=== PATIENT | male | born 1940 | race Caucasian/White ===

== ENCOUNTER → 2016-11-27 | Outpatient (CLI) | payer MEDICARE, OTHER ==
[~2016-11-27] MED LIST: ASP81CT PO; CLOB15CR3 TP; DILT120C PO; DILT180C PO; FURO40TA4 PO; GARL200T PO; KCL20TCR PO; METO50TA7 PO; NIA500ERT PO; NIFE60TA78 PO; OMEG-59 PO; PRV20T PO; ROSU10TA12 PO; SIMV20TA3 PO; TML.25OP OP; WRF5T PO; [UNRECOGNIZED DRUG - CODE] PO
== END ==
LOC: CARD 08:30
PROVIDERS: ATTEND Internal Medicine Cardiovascular Disease
DX: I11.0 Hypertensive heart disease with heart failure (principal); I50.22 Chronic systolic (congestive) heart failure; E78.2 Mixed hyperlipidemia; I48.0 Paroxysmal atrial fibrillation
CPT/HCPCS: 93306

== ENCOUNTER → 2018-11-16 | Outpatient (CLI) | payer MEDICARE, OTHER ==
[~2018-11-16] MED LIST changes: +REGADENOSON 0.4 MG/5 ML SYR (LEXISCAN) IV ONE
[2018-11-16] MEDS: CATHETER FLUSH 10 ML SYR IV PRN ×2 (11:36→13:10)
[2018-11-16 13:07] VITALS: BP 144/77
--- NOTE | 2018-11-16 21:21 | STRESS TEST ---
DATE OF SERVICE: 11/16/2018 LEXISCAN MYOVIEW STRESS TEST REFERRING PHYSICIAN: Dr. Belkis Babb. Baseline heart rate is 68. Baseline blood pressure is 142/82. Baseline EKG is sinus rhythm with no ischemic changes. In summary, the patient was injected with 10.92 mCi of technetium-99 Myoview and the resting images were obtained. Then, the patient received 0.4 mg of Lexiscan followed by 29.7 mCi of technetium-99 Myoview. Throughout the test, there were no EKG changes. The resting and stress images were reviewed and compared in the short axis, horizontal long axis, and vertical long axis views. Review of the images showed good radiotracer uptake with no ischemia or infarction. SSS is 2, SDS 2, TID value 0.84. On the gated images, the left ventricle appeared to be normal size with normal contractility. Calculated ejection fraction 62%. CONCLUSION: 1. The patient tolerated Lexiscan well. 2. No ischemia or infarction on SPECT images. 3. Normal left ventricular size with normal contractility. Calculated ejection fraction 62%. Job ID: [id number] DocumentID: [id number] Dictated Date: 11/16/2018 15:57:02 [employer] Date: 11/16/2018 21:20:49 Dictated By: MAYTE QUEEN MD
== END ==
LOC: CARD 11:23
PROVIDERS: ATTEND Internal Medicine Cardiovascular Disease
DX: I27.0 Primary pulmonary hypertension (principal); E78.5 Hyperlipidemia, unspecified; I11.0 Hypertensive heart disease with heart failure; I50.9 Heart failure, unspecified
CPT/HCPCS: 78452; 93017; 93306

== ENCOUNTER 2018-12-14 07:08 | Day surgery (SDC) | payer MEDICARE, OTHER ==
[2018-12-14] VITALS (13 sets, daily range): BP systolic 119–164; BP diastolic 61–87
[~2018-12-14] VITALS: Ht 180.3 cm; Wt 56.0 kg
[~2018-12-14 07:08] MED LIST changes: -REGADENOSON 0.4 MG/5 ML SYR (LEXISCAN) IV ONE
[2018-12-14] MEDS ORDERED: NS IV 1000 ML 1,000 ML IV SCH (07:27)
[2018-12-14] MEDS ORDERED: LIDOCAINE 2% VISCOUS 15 ML UDC PO ONE (07:30)
[2018-12-14] MEDS ORDERED: LIDOCAINE 2% VISCOUS 15 ML UDC ONE (07:32)
[2018-12-14] MEDS ORDERED: NS IV 1000 ML 1,000 ML ONE (07:32)
[2018-12-14 07:57] LABS: HEMOGLOBIN 13.2 G/DL (13.3-17.7); MEAN PLATELET VOLUME 11.3 FL (7.4-10.4); RED CELL DISTRIBUTION WIDTH 14.9 % (10.0-14.5)
[2018-12-14] MEDS ORDERED: MIDAZOLAM 2 MG/2 ML (VERSED) VIAL ONE (07:59)
[2018-12-14] MEDS ORDERED: proPOfol 200 MG/20 ML (DIPRIVAN) VIAL IV ONE (07:59)
[2018-12-14] MEDS ORDERED: DILT240C53 PO (08:00)
[2018-12-14] MEDS ORDERED: ATOR40TA PO (08:04)
[2018-12-14] MEDS ORDERED: POTA20TA8 PO (08:04)
[2018-12-14] MEDS ORDERED: METO-395 PO (08:04)
[2018-12-14] MEDS ORDERED: APIX5TAB PO (08:04)
[2018-12-14] MEDS ORDERED: AMIO200T4 PO (08:04)
[2018-12-14] MEDS ORDERED: FURO40TA4 PO (08:04)
[2018-12-14] MEDS ORDERED: LISI10TA2 PO (08:04)
[2018-12-14] MEDS ORDERED: LEVO112T55 PO (08:06)
[2018-12-14] MEDS ORDERED: OMEG-82 PO (08:06)
[2018-12-14] MEDS ORDERED: TIMO5DRO5 OU (08:06)
[2018-12-14] MEDS ORDERED: GARL200T PO (08:07)
[2018-12-14 08:09] LABS: INR 1.2 (0.8-1.4); PROTHROMBIN TIME PATIENT 15.9 SEC (12.2-14.7)
[2018-12-14] MEDS ORDERED: FLU QUADRIvalent (5+ YOA) 2019-2020 (AFLURIA) 0.5 ML IM ONE (08:15)
[2018-12-14 08:16] LABS: ALBUMIN 4.4 GM/DL (3.2-4.5); CALCIUM 9.5 MG/DL (8.5-10.1); CREATININE SERUM 1.38 MG/DL (0.60-1.30); POTASSIUM 4.2 MMOL/L (3.6-5.0)
--- NOTE | 2018-12-14 08:25 | Diagnostic Imaging Report ---
INDICATION: Pre transesophageal echo. Time of exam 7:41 AM Correlation is made with prior chest from 02/15/2013. Heart is enlarged. There is calcified granuloma right midlung. There is some basilar scarring. No infiltrates are seen. No effusion or pneumothorax is identified. IMPRESSION: No acute cardiopulmonary process is detected. Dictated by: Dictated on workstation # [id number]
--- NOTE | 2018-12-14 08:55 | NUR ---
SPOKE WITH THE PT ( HE HAD A MED LIST) WELL CALLING [employer] AND [facility] TO COMPLETE THE MED REC. THE PT WAS ABLE TO TELL ME HOW/WHEN HE TAKES ALL HIS MEDS. THE FOLLOWING ARE FILL DATES FROM HIS PHARMACIES: 10-19-2018 POTASSIUM #90/90DS 10-19-2018 CARTIA #90/90DS 10-19-2018 FUROSEMIDE #90/90DS 11-14-2018 AMIODARONE #180 11-15-2018 LEVOTHYROXINE #90/90DS 11-17-2018 METOPROLOL #90/90DS 12-02-2018 TIMOLOL 12-06-2018 ATORVASTATIN #90/90DS 12-06-2018 LISINOPRIL #90/90DS OTC MEDS: GARLIC FISH OIL
--- NOTE | 2018-12-14 09:05 | Cardiac Procedure Note-CS/ASA ---
Pre-Procedure Note Pre-Op Procedure Note H&P Reviewed The H&P was reviewed, patient examined and no changes noted. Date H&P Reviewed: Dec 14, 2018 Time H&P Reviewed: 09:05 Conscious Sedation Pre-Proced Time 09:05 ASA Score 3 For ASA 3 and 4: Consider anesthesia and medical clearance. Also, for patients with a history of failed moderate sedation consider anesthesia. Airway Lungs Heart ASA score ASA 1: a normal healthy patient ASA 2: a patient with a mild systemic disease (mid diabetes, controlled hypertension, obesity x ASA 3: a patient with a severe systemic disease that limits activity (angina, COPD, prior Myocardial infarction) ASA 4: a patient with an incapacitating disease that is a constant threat to life (CHF, renal failure) ASA 5: a moribund patient not expected to survive 24 hrs. (ruptured aneurysm) ASA 6: a declared brain- patient whose organs are being harvested. For emergent operations, add the letter E after the classification Mallampati Classification Grade 3 Sedation Plan Analgesia, Amnesia, Plan communicated to team members, Discussed options with patient/fam, Discussed risks with patient/fam The patient is an appropriate candidate to undergo the planned procedure, sedation, and anesthesia. The patient immediately re-assessed prior to indication. MAYTE QUEEN MD Dec 14, 2018 09:05
--- NOTE | 2018-12-14 09:29 | Cardioversion ---
Cardioversion PROCEDURE PHYSICIAN: Mayte Villeda DATE OF PROCEDURE: 12/14/18 DIRECT EXTERNAL ELECTRICAL CARDIOVERSION: Indications: Atrial Fibrillation with rapid ventricular rate Preoperative diagnoses: Atrial Fibrillation with rapid ventricular rate Postoperative diagnosis: Sinus rhythm, Successful Electrical Cardioversion History: 78 years old gentleman with paroxysmal atrial fibrillation, has been on amiodarone drip, scheduled for ZHEN with electrical cardioversion Anesthesia: By Anesthesia services Complications: None Specimen: None Contrast: 0 Flouroscopy: none Procedure Details: The patient was brought the labor employment associate after informed consent was taken, all the risks and complications were explained including the risk of stroke. Electrical cardioversion was carried out with anesthesia support with propofol. 200 joules of synchronized shock was delivered through external patches which promptly restored sinus rhythm. The patient tolerated the procedure well. Conclusions: Successful electrical cardioversion in terminating atrial fibrillation Final Diagnosis: Paroxysmal atrial fibrillation Palpitation Hypertension Hyperlipidemia MAYTE VILLEDA MD Dec 14, 2018 09:28
--- NOTE | 2018-12-14 09:35 | Anesthesia-Procedure Note ---
Procedures/Interventions Procedure Start/Stop/Diagnosis Date of Procedure: Dec 14, 2018 Start Time: 09:14 Referring Physician: christy Stop Time: 09:25 ZHEN/Cardioversion Anesthesia Type: MAC ASA Class: 3 Medications Versed 1mg, Propofol 80mg Monitors and Equipment: BP Cuff - Left, Continuous EKG, End Tidal CO2, IV, Pulse Oximeter READING,ELINA Hyatt CRNA Dec 14, 2018 09:35
== END 2018-12-14 11:50 | disposition home or self-care (01) ==
LOC: CATH 07:08 → SDC 10:21 → CATH 11:50
PROVIDERS: ATTEND Internal Medicine Cardiovascular Disease
DX: I48.0 Paroxysmal atrial fibrillation (principal); I11.0 Hypertensive heart disease with heart failure; I50.9 Heart failure, unspecified; E78.5 Hyperlipidemia, unspecified; I27.20 Pulmonary hypertension, unspecified; E03.9 Hypothyroidism, unspecified; Z79.899 Other long term (current) drug therapy; Z87.891 Personal history of nicotine dependence; Z79.01 Long term (current) use of anticoagulants; Z82.49 Family history of ischemic heart disease and other diseases of the circulatory system
CPT/HCPCS: 36415; 71045; 80053; 80061; 85027; 85610; 85730; 87081; 92960; 93005; 93312; 93320; 93325

== ENCOUNTER → 2020-01-03 | Outpatient (CLI) | payer MEDICARE, OTHER ==
[~2020-01-03] MED LIST changes: +AMIO200T6 PO; +APIX5TAB PO; +ATOR40TA PO; +DILT240C53 PO; +LEVO112T55 PO; +LISI10TA2 PO; +MTP100TCR PO; +OMEG-82 PO; +POTA20TA8 PO; +TIMO5DRO5 OU
--- NOTE | 2020-01-03 08:36 | Diagnostic Imaging Report ---
INDICATION: Hypertension and hyperlipidemia. Time of exam: 8:23 AM Correlation is made with prior chest from 12/14/2018. Heart size is stable. There is a focal opacity in the left base near the costophrenic angle. Otherwise, the lungs are clear. No effusion or pneumothorax is detected. The pulmonary vascularity is unremarkable. IMPRESSION: Focal left basilar opacity. While this could represent an area of scarring or atelectasis, possibility of infiltrate cannot be entirely excluded. Remainder of the lung h[place] are clear. Dictated by: Dictated on workstation # [id number]
== END ==
LOC: RAD 07:26
PROVIDERS: ATTEND Internal Medicine Cardiovascular Disease
DX: I11.0 Hypertensive heart disease with heart failure (principal); I50.22 Chronic systolic (congestive) heart failure; I48.0 Paroxysmal atrial fibrillation; E78.5 Hyperlipidemia, unspecified
CPT/HCPCS: 71046

== ENCOUNTER → 2020-05-16 | Outpatient (CLI) | payer MEDICARE, OTHER ==
[~2020-05-16] MED LIST changes: -LISI10TA2 PO; +LISI10TA25 PO
--- NOTE | 2020-05-16 11:39 | Diagnostic Imaging Report ---
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 Exam: Chest x-ray PA and lateral views. Comparisons: Chest x-ray dated 01/03/2020. Findings: Lungs/pleura: There is interval decreased size of the patchy consolidation of lateral left lung base with residual curvilinear opacities seen which may be related to residual scarring. The remainder of the lungs are clear. There is no pneumothorax. There is no pleural effusion. Mediastinum: Unremarkable. Pulmonary vasculature: Unremarkable. Heart: Unremarkable. Bones/extrathoracic soft tissue: There are mild to moderately hypertrophic degenerative osteophytes scattered throughout the thoracic spine. Impression: 1: There is no radiographic evidence of acute cardiopulmonary process. 2: There is interval decreased size of airspace opacities in the periphery of the left lung base with suspected residual curvilinear scarring. Dictated by: Dictated on workstation # [id number]
== END ==
LOC: LAB 10:04
PROVIDERS: ATTEND Physician Assistant
DX: I50.22 Chronic systolic (congestive) heart failure (principal); J84.9 Interstitial pulmonary disease, unspecified
CPT/HCPCS: 71046

== ENCOUNTER 2021-04-23 06:51 | Day surgery (SDC) | payer MEDICARE, OTHER ==
[~2021-04-23] VITALS: Ht 180.3 cm; Wt 85.3 kg
[2021-04-23] VITALS (10 sets, daily range): BP systolic 127–174; BP diastolic 74–99
[~2021-04-23 06:51] MED LIST changes: -AMIO200T6 PO; +AMIO200T65 PO; +POTA-169 PO; -POTA20TA8 PO
[2021-04-23] MEDS ORDERED: NS IV 1000 ML 1,000 ML ONE (07:07)
[2021-04-23] MEDS ORDERED: NS IV 1000 ML 1,000 ML IV SCH (07:15)
[2021-04-23 07:41] LABS: HEMOGLOBIN 12.4 g/dL (13.3-17.7)
[2021-04-23 07:43] LABS: MEAN PLATELET VOLUME 10.8 fL (9.0-12.2); WHITE BLOOD COUNT 5.2 10^3/uL (4.3-11.0)
--- NOTE | 2021-04-23 07:43 | Conscious Sedation/ASA ---
Conscious Sedation Pre-Proced Time 07:42 ASA Score 3 For ASA 3 and 4: Consider anesthesia and medical clearance. Also, for patients with a history of failed moderate sedation consider anesthesia. Airway Lungs Heart ASA score ASA 1: a normal healthy patient ASA 2: a patient with a mild systemic disease (mid diabetes, controlled hypertension, obesity x ASA 3: a patient with a severe systemic disease that limits activity (angina, COPD, prior Myocardial infarction) ASA 4: a patient with an incapacitating disease that is a constant threat to life (CHF, renal failure) ASA 5: a moribund patient not expected to survive 24 hrs. (ruptured aneurysm) ASA 6: a declared brain- patient whose organs are being harvested. For emergent operations, add the letter E after the classification Mallampati Classification Grade 3 Sedation Plan Analgesia, Amnesia, Plan communicated to team members, Discussed options with patient/fam, Discussed risks with patient/fam The patient is an appropriate candidate to undergo the planned procedure, sedation, and anesthesia. The patient immediately re-assessed prior to indication. MAYTE QUEEN MD Apr 23, 2021 07:43
[2021-04-23] MEDS ORDERED: MIDAZOLAM 2 MG/2 ML (VERSED) VIAL ONE (07:46)
[2021-04-23] MEDS ORDERED: proPOfol 200 MG/20 ML (DIPRIVAN) VIAL IV ONE (07:47)
[2021-04-23] MEDS ORDERED: DILT120C85 PO (07:54)
[2021-04-23] MEDS ORDERED: METO50TA7 PO (07:54)
[2021-04-23] MEDS ORDERED: LISI20TA26 PO (07:54)
[2021-04-23] MEDS ORDERED: FISH1CAP15 PO (07:54)
[2021-04-23] MEDS ORDERED: RIVA20TA PO (07:54)
[2021-04-23] MEDS ORDERED: LATA7.5D OU (07:54)
--- NOTE | 2021-04-23 07:57 | Cardioversion ---
Cardioversion PROCEDURE PHYSICIAN: Mayte Villeda DATE OF PROCEDURE: 04/23/21 DIRECT EXTERNAL ELECTRICAL CARDIOVERSION: Indications: Atrial Fibrillation Preoperative diagnoses: Atrial Fibrillation Postoperative diagnosis: Sinus rhythm, Successful Electrical Cardioversion Anesthesia: By Anesthesia services Complications: None Specimen: None Contrast: 0 Flouroscopy: none Procedure Details: The patient was brought the medical laboratory technician after informed consent was taken, all the risks and complications were explained including the risk of stroke. Electrical cardioversion was carried out with anesthesia support with propofol. 120 joules of synchronized shock was delivered through external patches which promptly r estored sinus rhythm. The patient tolerated the procedure well. Conclusions: Successful electrical cardioversion with no complication Final Diagnosis: Paroxysmal atrial fibrillation Palpitation Dyspnea Hypertension BRET,MAYTE Armendariz MD Apr 23, 2021 07:57
--- NOTE | 2021-04-23 07:59 | Discharge Inst-Post CATH ---
Discharge Inst-CATH/EP Problems Reviewed?: Yes Post Cardiac Cath/EP D/C Inst Follow Up/Plan Appointment with Dr. Villeda's office in 2 weeks <b>CARDIAC CATH/EP PROCEDURE DISCHARGE INSTRUCTIONS</b> ACTIVITY * Go Home directly and rest. * Limit activity of the leg (or wrist if it was used) for 7 days including aerobics, swimming, jogging, bicycling, etc. * Restrict stair-climbing for 7 days if possible, if not, climb up with your non-cath leg, then bring together on the same step. * Avoid lifting, pushing, pulling or excessive movement of the affected extremity for 7 days. * Customary sexual activity may be resumed after 2 days-use caution not to use a position that strains or causes pain to the affected extremity. * No driving for 24 hours. * NO SMOKING. * Avoid straining for bowel movements for 7 days. * Gentle walking on level ground is allowed. * Returning to work will depend on the type of procedure and the results. Your doctor will discuss this with you. CALL YOUR DOCTOR FOR ANY OF THE FOLLOWING: *If bleeding from the puncture site occurs- Apply gentle pressure to site with clean cloth and call your doctor or EMS. * If a knot or lump forms under the skin, increases in size, or causes pain. * If bruising appears to be worsening or moving further down your leg instead of disappearing. * Temperature above 101 F. CARE OF YOUR GROIN INCISION; * Bruising or purple discoloration of the skin near the puncture site is common. * You may shower only, no bathtub bathing for 5 days. Be careful to avoid slipping as your leg may feel stiff. * If a closure device was used on your femoral artery, please see the attached guide regarding care of the device and your leg. * Leave dressing on FOR 24 hours. CARE OF YOUR WRIST INCISION; * Bruising or purple discoloration of the skin near the puncture site is common. * You may shower. * DO NOT submerge wrist. * Leave dressing on FOR 24 hours. MAYTE VILLEDA MD Apr 23, 2021 07:59
[2021-04-23 08:05] LABS: ALBUMIN 4.1 GM/DL (3.2-4.5); BILIRUBIN,TOTAL 0.8 MG/DL (0.1-1.0); CALCIUM 9.2 MG/DL (8.5-10.1); CREATININE SERUM 1.43 MG/DL (0.60-1.30); POTASSIUM 4.3 MMOL/L (3.6-5.0); TOTAL PROTEIN 6.6 GM/DL (6.4-8.2)
--- NOTE | 2021-04-23 08:07 | Anesthesia-General Post-Op ---
MAC Patient Condition Mental Status/LOC: Same as Preop Cardiovascular: Satisfactory Nausea/Vomiting: Absent Respiratory: Satisfactory Pain: Controlled Complications: Absent Post Op Complications Complications None Follow Up Care/Instructions Patient Instructions None needed. Anesthesiology Discharge Order Discharge Order Patient is doing well, no complaints, stable vital signs, no apparent adverse anesthesia problems. No complications reported per nursing. GABBY YE CRNA Apr 23, 2021 08:07
== END 2021-04-23 10:00 ==
LOC: CATH 06:51 → SDC 08:28 → CATH 10:00
PROVIDERS: ATTEND Internal Medicine Cardiovascular Disease
DX: I48.0 Paroxysmal atrial fibrillation (principal); I27.20 Pulmonary hypertension, unspecified; E03.9 Hypothyroidism, unspecified; I50.9 Heart failure, unspecified; I11.0 Hypertensive heart disease with heart failure; E78.2 Mixed hyperlipidemia; I65.29 Occlusion and stenosis of unspecified carotid artery; Z79.01 Long term (current) use of anticoagulants; Z79.899 Other long term (current) drug therapy; Z87.891 Personal history of nicotine dependence; Z79.890 Hormone replacement therapy; Z85.819 Personal history of malignant neoplasm of unspecified site of lip, oral cavity, and pharynx
CPT/HCPCS: 36415; 80053; 84443; 85027; 87081; 92960; 93005

== ENCOUNTER → 2021-08-20 | Outpatient (CLI) | payer MEDICARE, OTHER ==
[~2021-08-20] MED LIST changes: +DILT120C85 PO; +FISH1CAP15 PO; +LATA7.5D OU; +LISI20TA26 PO; +RIVA20TA PO
== END ==
LOC: CARD 08:45
PROVIDERS: ATTEND Physician Assistant
DX: I11.9 Hypertensive heart disease without heart failure (principal); I08.1 Rheumatic disorders of both mitral and tricuspid valves; I25.10 Atherosclerotic heart disease of native coronary artery without angina pectoris
CPT/HCPCS: 93306